=== PATIENT | male | born 1960 | race African-American/Black ===

== ENCOUNTER 2018-12-24 23:42 | Emergency (ER) | payer SELFPAY ==
[~2018-12-24] VITALS: Ht 180.3 cm; Wt 85.0 kg
[2018-12-24 23:51] VITALS: BP 180/70
--- NOTE | 2018-12-24 23:56 | NUR ---
UPON TAKING TRIAGE VITALS AND PERFORMING INITIAL ASSESSMENT PT BECAME AGGITATED AND VERBALLY ABUSIVE, PT NOT WANTING TO ANSWER QUESTIONS, PT REFUSED TO TURN OVER POTENTIAL WEAPONS TO SECURITY STAFF. PT REFUSED VITAL SIGNS, REFUSED EXAM AND REQUESTED TO LEAVE IMMEDIATELY BEFORE ED MD CAN EVALUATE. PT WARNED OF THE POTENTIAL NEED FOR FURTHER EVALUATION AND THE HARM THAT MAY COME FROM REFUSING CARE, HE CONTINUED TO REFUSE TO STAY AND WALKED OUT OF THE ED ESCORTED BY SECURITY.
== END 2018-12-24 23:59 | disposition left against medical advice (07) ==
LOC: ER 23:43
DX: S01.91XA Laceration without foreign body of unspecified part of head, initial encounter (principal); W22.8XXA Striking against or struck by other objects, initial encounter; Y93.89 Activity, other specified; Y92.89 Other specified places as the place of occurrence of the external cause; Y99.8 Other external cause status; Z53.21 Procedure and treatment not carried out due to patient leaving prior to being seen by health care provider